=== PATIENT | female | born 1935 | race Caucasian/White ===

== ENCOUNTER 2022-09-09 22:41 | Observation (INO) ==
[2022-09-09] MEDS ORDERED: SODIUM CHLORIDE 0.9% 1,000 ML IV STA (23:34)
[2022-09-09 23:42] LABS: Basophils % 0.4 % (0.0-0.8); Eosinophils # 0.4 10*3/uL (0.0-0.87); Eosinophils % 4.8 % (0.00-10.9); Hematocrit 27.4 VOL% (35.7-47.0); Hemoglobin 8.8 GM/DL (12.0-16.0); Immature Granulocytes % 0.4 %; Immature Granulocytes Absolute 0.03 #; Lymphocytes # 2.5 10*3/uL (1.4-4.0); Lymphocytes % 29.4 % (21.3-54.2); Mean Corpuscular HGB Conc 32.1 GM/DL (32-36); Mean Corpuscular Volume 96.5 FL (87-102); Mean Platelet Volume 9.4 FL (9.6-12.0); Monocytes # 0.7 10*3/uL (0.11-0.8); Monocytes % 8.3 % (1.7-12.7); Neutrophils % 56.7 % (38.7-73.9); Platelet Count 448 T/CUMM (130-400); Red Blood Count 2.84 MC/CUMM (3.8-5.5); Red Cell Distribution Width 15.3 % (9.3-17.3); White Blood Count 8.5 T/CUMM (4-12)
[2022-09-09 23:54] LABS: INR 0.9; PT Patient Result 10.3 SECS (10.1-12.1); Partial Thromboplastin Time 22.5 SECS (23.7-32.9)
[2022-09-10 00:08] LABS: Alanine Aminotransferase 26 U/L (13-56); Albumin 3.5 G/DL (3.4-5.0); Alkaline Phosphatase 86 U/L (45-117); Aspartate Amino Transferase 19 U/L (0-37); Bilirubin,Total < 0.39 MG/DL (0.20-1.00); Blood Urea Nitrogen 29 MG/DL (7-18); Calcium 8.9 MG/DL (8.5-10.1); Carbon Dioxide 25 MMOL/L (21-32); Chloride 105 MMOL/L (98-107); Glucose 164 MG/DL (74-106); Osmolality,Calculated 290.3 MOS/KG (273-304); Potassium 3.5 MMOL/L (3.5-5.1); Sodium 141 MMOL/L (136-145); Total Protein 7.2 G/DL (6.4-8.2)
[2022-09-10] MEDS ORDERED: ONDANSETRON 4 MG/2 ML VIAL IV PRN (00:22)
[2022-09-10 00:49] LABS: Alanine Aminotransferase 24 U/L (13-56); Albumin 3.5 G/DL (3.4-5.0); Alkaline Phosphatase 87 U/L (45-117); Aspartate Amino Transferase 23 U/L (0-37); Bilirubin,Total < 0.39 MG/DL (0.20-1.00); Blood Urea Nitrogen 30 MG/DL (7-18); Calcium 8.8 MG/DL (8.5-10.1); Carbon Dioxide 24 MMOL/L (21-32); Chloride 105 MMOL/L (98-107); Glucose 165 MG/DL (74-106); Osmolality,Calculated 290.3 MOS/KG (273-304); Potassium 3.3 MMOL/L (3.5-5.1); Sodium 141 MMOL/L (136-145); Total Protein 7.5 G/DL (6.4-8.2)
[2022-09-10 02:29] LABS: Basophils % 0.5 % (0.0-0.8); Eosinophils # 0.3 10*3/uL (0.0-0.87); Eosinophils % 4.3 % (0.00-10.9); Hematocrit 23.5 VOL% (35.7-47.0); Hemoglobin 7.5 GM/DL (12.0-16.0); Immature Granulocytes % 0.4 %; Immature Granulocytes Absolute 0.03 #; Lymphocytes # 2.1 10*3/uL (1.4-4.0); Lymphocytes % 27.1 % (21.3-54.2); Mean Corpuscular HGB Conc 31.9 GM/DL (32-36); Mean Corpuscular Volume 96.3 FL (87-102); Mean Platelet Volume 9.4 FL (9.6-12.0); Monocytes # 0.6 10*3/uL (0.11-0.8); Monocytes % 8.4 % (1.7-12.7); Neutrophils % 59.3 % (38.7-73.9); Platelet Count 383 T/CUMM (130-400); Red Blood Count 2.44 MC/CUMM (3.8-5.5); Red Cell Distribution Width 15.3 % (9.3-17.3); White Blood Count 7.6 T/CUMM (4-12)
[2022-09-10] MEDS ORDERED: SODIUM CHLORIDE 0.9% 1,000 ML IV PRN ×2 (08:52→08:59)
[2022-09-10] MEDS ORDERED: FUROSEMIDE 20 MG TABLET PO SCH (09:00)
[2022-09-10] MEDS ORDERED: MAGNESIUM OXIDE 400 MG TABLET PO SCH (09:00)
[2022-09-10] MEDS ORDERED: LOPERAMIDE 2 MG CAPSULE PO PRN (09:14)
[2022-09-10 09:48] LABS: Hematocrit 22.9 VOL% (35.7-47.0); Hemoglobin 7.2 GM/DL (12.0-16.0)
[2022-09-10] MEDS: LOSARTAN 50 MG TABLET PO SCH (10:03)
[2022-09-10] MEDS: POTASSIUM BICARB EFFERVESCENT 20 MEQ TAB.EFF PO SCH ×2 (10:03→21:59)
[2022-09-10] MEDS: SILDENAFIL 20 MG TABLET PO SCH ×6 (10:03→22:00)
[2022-09-10] MEDS: FLUoxetine 20 MG CAPSULE PO SCH ×2 (10:04→22:00)
[2022-09-10] MEDS: allopurinoL 100 MG TABLET PO SCH ×2 (10:04→21:59)
[2022-09-10] MEDS: CLOBETASOL 0.05% CREAM 15 GM TUBE TOP SCH ×2 (10:05→22:03)
[2022-09-10] MEDS: PANTOPRAZOLE 40 MG VIAL IV SCH (10:05)
[2022-09-10] MEDS: BUDESONIDE/FORMOTEROL 160-4.5 INHALER 6 GM INH SCH ×3 (10:06→22:05)
[2022-09-10] MEDS: METOPROLOL TARTRATE 50 MG TABLET PO SCH (10:07)
[2022-09-10] MEDS: METOPROLOL SUCCINATE XL 50 MG TABLET PO SCH (10:08)
[2022-09-10] MEDS: SODIUM CHLORIDE 0.9% 1,000 ML IV SCH (10:22)
[2022-09-10] MEDS: MAGNESIUM CHLORIDE 64 MG TABLET PO SCH ×2 (11:59→21:59)
[2022-09-10] MEDS: ACETAMINOPHEN 325 MG TABLET PO SCH ×2 (12:00→22:07)
[2022-09-10] MEDS ORDERED: BISACODYL 5 MG TABLET PO ONE (15:00)
[2022-09-10] MEDS ORDERED: POLYETHYLENE GLYCOL POWDER 255 GM BOTTLE PO ONE (18:00)
[2022-09-10 21:39] LABS: Hematocrit 28.5 VOL% (35.7-47.0); Hemoglobin 9.2 GM/DL (12.0-16.0)
[2022-09-11] MEDS: SODIUM CHLORIDE 0.9% 1,000 ML IV SCH ×4 (02:14→17:28)
[2022-09-11 04:43] LABS: Hematocrit 27.6 VOL% (35.7-47.0)
[2022-09-11] MEDS ORDERED: POLYETHYLENE GLYCOL POWDER 255 GM BOTTLE PO ONE (05:00)
[2022-09-11 06:29] LABS: Calcium 8.2 MG/DL (8.5-10.1); Potassium 3.7 MMOL/L (3.5-5.1)
[2022-09-11] MEDS ORDERED: MAGNESIUM SULF RIDER 2 GM/50 ML PREMIX IV ONE (06:41)
[2022-09-11] MEDS: LEVOTHYROXINE 125 MCG TABLET PO SCH (06:42)
[2022-09-11] MEDS: LACTATED RINGERS 1,000 ML IV SCH (11:26)
[2022-09-11] MEDS ORDERED: FUROSEMIDE 40 MG TABLET PO SCH (16:00)
[2022-09-11] MEDS: SILDENAFIL 20 MG TABLET PO SCH ×6 (16:23→22:22)
[2022-09-11] MEDS: FLUoxetine 20 MG CAPSULE PO SCH ×2 (16:23→22:21)
[2022-09-11] MEDS: MAGNESIUM CHLORIDE 64 MG TABLET PO SCH ×2 (16:23→22:21)
[2022-09-11] MEDS: FUROSEMIDE 40 MG TABLET PO SCH (16:24)
[2022-09-11] MEDS: allopurinoL 100 MG TABLET PO SCH ×2 (16:24→22:21)
[2022-09-11] MEDS: ACETAMINOPHEN 325 MG TABLET PO SCH ×2 (16:25→22:20)
[2022-09-11] MEDS: LOSARTAN 50 MG TABLET PO SCH (16:33)
[2022-09-11] MEDS: PANTOPRAZOLE 40 MG VIAL IV SCH (16:35)
[2022-09-11] MEDS: BUDESONIDE/FORMOTEROL 160-4.5 INHALER 6 GM INH SCH ×3 (16:40→22:30)
[2022-09-11] MEDS: METOPROLOL TARTRATE 50 MG TABLET PO SCH (16:43)
[2022-09-11] MEDS: METOPROLOL SUCCINATE XL 50 MG TABLET PO SCH (16:43)
[2022-09-11] MEDS: CLOBETASOL 0.05% CREAM 15 GM TUBE TOP SCH ×2 (17:25→22:22)
[2022-09-12] MEDS: SODIUM CHLORIDE 0.9% 1,000 ML IV SCH ×2 (00:35→09:55)
[2022-09-12] MEDS: LEVOTHYROXINE 125 MCG TABLET PO SCH (05:40)
[2022-09-12 07:28] LABS: Basophils % 0.3 % (0.0-0.8); Eosinophils # 0.2 10*3/uL (0.0-0.87); Eosinophils % 2.1 % (0.00-10.9); Hematocrit 30.1 VOL% (35.7-47.0); Hemoglobin 9.6 GM/DL (12.0-16.0); Immature Granulocytes % 0.5 %; Immature Granulocytes Absolute 0.04 #; Lymphocytes # 1.4 10*3/uL (1.4-4.0); Lymphocytes % 16.6 % (21.3-54.2); Mean Corpuscular HGB Conc 31.9 GM/DL (32-36); Mean Corpuscular Volume 94.1 FL (87-102); Mean Platelet Volume 8.8 FL (9.6-12.0); Monocytes # 0.6 10*3/uL (0.11-0.8); Monocytes % 7.3 % (1.7-12.7); Neutrophils % 73.2 % (38.7-73.9); Platelet Count 313 T/CUMM (130-400); Red Cell Distribution Width 15.3 % (9.3-17.3); White Blood Count 8.6 T/CUMM (4-12)
[2022-09-12 07:51] LABS: Calcium 8.7 MG/DL (8.5-10.1); Osmolality,Calculated 279.4 MOS/KG (273-304); Potassium 3.9 MMOL/L (3.5-5.1)
[2022-09-12] MEDS ORDERED: MAGNESIUM SULF RIDER 2 GM/50 ML PREMIX IV ONE (08:25)
[2022-09-12] MEDS: MAGNESIUM CHLORIDE 64 MG TABLET PO SCH (09:45)
[2022-09-12] MEDS: FUROSEMIDE 40 MG TABLET PO SCH (09:45)
[2022-09-12] MEDS: FLUoxetine 20 MG CAPSULE PO SCH (09:45)
[2022-09-12] MEDS: SILDENAFIL 20 MG TABLET PO SCH ×3 (09:46→16:28)
[2022-09-12] MEDS: allopurinoL 100 MG TABLET PO SCH (09:46)
[2022-09-12] MEDS: LOSARTAN 50 MG TABLET PO SCH (09:46)
[2022-09-12] MEDS: ACETAMINOPHEN 325 MG TABLET PO SCH (09:46)
[2022-09-12] MEDS: PANTOPRAZOLE 40 MG VIAL IV SCH (09:54)
[2022-09-12] MEDS: LACTATED RINGERS 1,000 ML IV SCH (09:54)
[2022-09-12] MEDS: BUDESONIDE/FORMOTEROL 160-4.5 INHALER 6 GM INH SCH (09:55)
[2022-09-12] MEDS: CLOBETASOL 0.05% CREAM 15 GM TUBE TOP SCH (09:55)
[2022-09-12] MEDS: METOPROLOL TARTRATE 50 MG TABLET PO SCH (10:31)
[2022-09-12] MEDS: METOPROLOL SUCCINATE XL 50 MG TABLET PO SCH (10:32)
[2022-09-12 16:44] VITALS: BP 122/69
[2022-09-13] MEDS ORDERED: ASPIRIN EC 81 MG TABLET PO SCH (09:00)
== END 2022-09-12 18:13 | disposition home or self-care (01) ==
LOC: N.ED 22:41 → N.EDINP 22:41 → N.TELEN 09-10 01:58
PROVIDERS: ADMIT Family Medicine; ATTEND Family Medicine
PROC: COLONBX (2022-09-11 08:05)